=== PATIENT | male | born 1990 | race Two or more races ===

== ENCOUNTER 2022-12-27 17:57 | Emergency (ER) | payer OTHER ==
[~2022-12-27] VITALS: Ht 177.8 cm; Wt 75.0 kg
[2022-12-27 20:55] VITALS: BP 113/78
[2022-12-27] MEDS ORDERED: HYDROCODONE/ACETAMINOPHEN 5-325 MG TABLET PO ONE (21:15)
== END 2022-12-27 22:42 ==
LOC: EMS 17:57
DX: S52.514A Nondisplaced fracture of right radial styloid process, initial encounter for closed fracture (principal); W22.8XXA Striking against or struck by other objects, initial encounter; Y93.66 Activity, soccer; Y92.89 Other specified places as the place of occurrence of the external cause; Y99.8 Other external cause status
CPT/HCPCS: 99283